=== PATIENT | male | born 1985 | race Two or more races ===

== ENCOUNTER 2018-10-26 14:47 | Emergency (ER) | payer SELFPAY ==
[~2018-10-26] VITALS: Ht 167.6 cm; Wt 76.0 kg
[2018-10-26 17:15] VITALS: BP 124/86
== END 2018-10-26 17:35 | disposition home or self-care (01) ==
LOC: ER 14:47
DX: R07.9 Chest pain, unspecified (principal); F17.200 Nicotine dependence, unspecified, uncomplicated
CPT/HCPCS: 36415; 71045; 84484; 93005; 99284